=== PATIENT | female | born 1940 | race Caucasian/White ===

== ENCOUNTER 2022-12-07 10:57 | Outpatient (AMB) | payer OTHER, SELFPAY ==
--- NOTE | 2022-12-07 10:59 | A.OFFVIS_ITS ---
Intake Vital Signs 12/07/22 11:03 Height 5 ft 1 in Weight 153 lb 8 oz BMI 29.0 BP 122/68 Blood Pressure Location Rt brachial Position Sitting Respiration 16 Pulse 76 Pulse Source Pulse Oximeter Pulse Oximetry (%) 97 Oxygen Delivery Method Room Air Intake Visit Reasons: CWA-[id number]-[id number] tone Intake Note: Pt presents to the office for new patient evaluation for Meningioma.Pt is here with her daughter, Nina who is also her historian. She reports pt had a fall back in May/2022 and was admitted to [facility] where a scan of her head was done and they found a possible tumor . Pt denies headaches or vision problems. SHe does c/o problems with my neck . Bait Tier Required: No Allergies lisinopril Allergy (Mild, Verified 12/07/22 11:27) Hives HPI HPI Comments History of Present Illness Details 82y/o right handed female comes for neur ological evaluation. she had a fall on May 2022 , fractured her rib and sacrum, hospitalized at [facility] and had Acute renal failure from dehydration, hypernatremia . She had an imaging which showed meningioma she denies any headaches , double vision, vertigo, weakness, numbness, dysarthria etc. she reports mild memory issues, neck pain and gait issues.she denies any seizures or loss of consciousness she was seen by neurosurgery and was told that she was not a surgical candidate. [facility] Medical History (Updated 12/16/22 @ 15:30 by Kaci Boucher MD) Meningioma Surgical History (Updated 12/07/22 @ 11:15 by Olena Santo CMA) H/O shoulder surgery H/O total hysterectomy Family History (Updated 12/07/22 @ 11:17 by Olena Santo CMA) Mother No problems noted. Father No problems noted. Sister Breast cancer Osteoporosis HTN (hypertension) Social History (Updated 12/07/22 @ 11:18 by Olena Santo CMA) Household Members: Children Caregiver staying overnight: Yes (Son Robin) Housing: House Alcohol intake: never Years Smoked: for 50 years- 2 packs per day Use of substances other than those prescribed or required for medical reasons: No Physical Exam Vital Signs: Last Vital Signs Pulse 76 12/07/22 11:03 Resp 16 12/07/22 11:03 BP 122/68 12/07/22 11:03 Pulse Ox 97 12/07/22 11:03 Oxygen Delivery Method Room Air 12/07/22 11:03 BMI result Body Mass Index 29.0 Const General: cooperative and comfortable Nutritional Appearance: average body habitus Orientation/consciousness: patient oriented x3 Eyes Pupils: Equal, round and reactive pupils present Neuro General: patient oriented x3, tone normal and moves all extremities Cranial nerves: Yes Equal, round and reactive pupils present, Yes Bilaterally intact EOM present, Yes Nystagmus not present, Yes Normal facial strength present, Yes Midline tongue present and Yes Symmetric palate elevation present Cognition (Neuro): normal cognition Gait exam (Neuro): Antalgic gait present Motor exam (neuro): 5/5 motor strength present throughout Deep tendon reflexes (DTR's): Right triceps reflex intensity grade: 2+, Left triceps reflex intensity grade: 2+, Rt Biceps (C5, C6): 2+, Left biceps reflex intensity grade: 2+, Right brachioradialis reflex intensity grade: 2+, Left brachioradialis reflex intensity grade: 2+, Right patellar reflex intensity grade: 1+ and Left patellar reflex intensity grade: 1+ Coordination: [id number] test normal Results Reviewed Results Reviewed: MRI brain 05/2022 1.1 cm meningioma in right frontal convexity Assessment & Plan Assessment & Plan (1) Meningioma: Code(s): D32.9 - Benign neoplasm of meninges, unspecified Plan Reviewed MRI brain Her neuro exam was non focal today I discussed the MRI report and will follow up clinically. Consider a repeat exam in2-3 years. Coding Level of Care Code New Pt Level 3 (37859) Diagnoses Meningioma D32.9
[2022-12-07 11:03] VITALS: BP 122/68; PULSE 76; RESP 16; O2SAT 97; BMI 29.0
== END 2022-12-07 11:44 | disposition home or self-care (01) ==
PROVIDERS: PCP Nurse Practitioner Primary Care; Visit Provider Psychiatry & Neurology Neurology
DX: D32.9 Benign neoplasm of meninges, unspecified (principal)
CPT/HCPCS: 99203

== ENCOUNTER → 2022-12-07 10:57 | Outpatient (BNVA) | payer OTHER, SELFPAY | PROVIDERS: PCP Nurse Practitioner Primary Care; Visit Provider Psychiatry & Neurology Neurology ==